=== PATIENT | female | born 1975 | race American Indian/Alaskan Native ===

== ENCOUNTER 2017-02-28 21:03 | Emergency (ER) | payer OTHER ==
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
[2017-03-01] MEDS: ULTRAM PO ONE (02:49)
[2017-03-01 02:58] VITALS: BP 124/68
== END 2017-03-01 02:56 | disposition home or self-care (01) ==
LOC: ED 21:03
DX: S16.1XXA Strain of muscle, fascia and tendon at neck level, initial encounter (principal); V43.52XA Car driver injured in collision with other type car in traffic accident, initial encounter; Y93.9 Activity, unspecified; Y99.9 Unspecified external cause status; Y92.410 Unspecified street and highway as the place of occurrence of the external cause
CPT/HCPCS: 99283